=== PATIENT | male | born 1995 | race Two or more races ===

== ENCOUNTER 2019-04-23 18:03 | Emergency (ER) | payer SELFPAY ==
[~2019-04-23] VITALS: Ht 188 cm; Wt 90.7 kg
[2019-04-23 18:24] VITALS: BP 143/95
--- NOTE | 2019-04-23 18:34 | NUR ---
ED Nurse Note: PT WALKED IN DUE TO RIGHT INDEX FINGER LACERATION WITH PRESSURE DRESSING APPLIED. PT'S HAND WAS CUT WITH A GLASS WHILE WASHING DISHES. UNABLE TO REMEMBER LAST TETANUS SHOT. AAO X4, AMBULATORY.
--- NOTE | 2019-04-23 18:40 | NUR ---
ED Nurse Note: IRRIGATED WOUND WITH NS THEN PATTED DRY BY LUIS E/MANAGER PRESENTATION. NO BROKEN GLASS NOTED.
[2019-04-23] MEDS ORDERED: Tetanus/Diptheria/Pertussis IM ONE (18:45)
--- NOTE | 2019-04-23 19:04 | NUR ---
HAND-OFF: Report given to MAX LIRIANO.
[2019-04-23] MEDS ORDERED: Lidocaine 1% MPF 10mg/ml 5ml IM ONE (19:15)
[2019-04-23] MEDS ORDERED: Bacitracin Oint UD TOPIC ONE (19:45)
[2019-04-23] MEDS ORDERED: BACITRACIN-P28.35 GM TP (19:49)
[2019-04-23] MEDS ORDERED: CEPHALEXIN500 MG ORAL (19:49)
--- NOTE | 2019-04-23 19:49 | Emergency Room Report ---
History of Present Illness General Chief Complaint: Laceration Source: Patient Present Illness HPI 23-year-old male presents to the emergency department complaining of 8 out of 10 severity pain, bleeding and open wound to the right index finger. Patient reports he sustained laceration while cleaning a glass this evening. Patient states he is not up-to-date with tetanus vaccines he denies taking blood thinning medications. He denies loss of gross motor movements or sensation in the affected extremity. Patient denies suspicion of foreign body. Patient reports flexion of the right index finger exacerbates some of his pain. He states that he is right-hand dominant. No other aggravating or relieving factors. Allergies: Coded Allergies: No Known Allergies (Unverified , 04/23/19) Patient History Past Medical History: see triage record Past Surgical History: none Pertinent Family History: none Reviewed Nursing Documentation: PMH: Agreed; PSxH: Agreed Nursing Documentation-PMH Past Medical History: No Stated History Review of Systems All Other Systems: negative except mentioned in HPI Physical Exam Vital Signs Date Time Temp Pulse Resp B/P (MAP) Pulse Ox O2 Delivery O2 Flow Rate FiO2 04/23/19 18:24 98.8 70 20 143/95 97 Room Air Sp02 EP Interpretation: reviewed, normal General Appearance: no apparent distress, alert, GCS 15, non-toxic Head: normocephalic, atraumatic Eyes: bilateral eye normal inspection, bilateral eye PERRL ENT: hearing grossly normal, normal voice Neck: full range of motion Respiratory: lungs clear, normal breath sounds, speaking full sentences Cardiovascular #1: regular rate, rhythm, normal capillary refill Musculoskeletal: normal range of motion - against resistance. , gait/station normal, non-tender Neurologic: alert, motor strength/tone normal, oriented x3, sensory intact, responsive, speech normal, grossly normal Psychiatric: judgement/insight normal Skin: laceration - 2.5 cm jagged laceration that is superficial in some parts on the dorsum of the right index finger. not bleeding at this time. not gaping. Procedures Laceration/Wound Repair Laceration/Wound Repair : Consent: Verbal Wound Location: upper extremity - right index finger Wound's Depth, Shape: irregular Wound Length (cm): 2 Wound Explored: clean Irrigated w/ Saline (ccs): 500 Betadine Prep?: No Anesthesia: 1% Lidocaine Volume Anesthetic (ccs): 4 Wound Repaired With: sutures Suture Size/Type: 4:0 Number of Sutures: 2 Layer Closure?: No Sterile Dressing Applied?: Yes Splint Applied?: Yes - finger splint Type of Splint Applied: right index finger splint Sling Applied?: No Patient Tolerated: Well Complications: None Medical Decision Making PA Attestation Dr. Guzman is my supervising Physician whom patient management has been discussed with. Diagnostic Impression: Primary Impression: Laceration ER Course 23-year-old male presents to the emergency department complaining of 8 out of 10 severity pain, bleeding and open wound to the right index finger. Patient reports he sustained laceration while cleaning a glass this evening. Patient states he is not up-to-date with tetanus vaccines he denies taking blood thinning medications. He denies loss of gross motor movements or sensation in the affected extremity. Patient denies suspicion of foreign body. Patient reports flexion of the right index finger exacerbates some of his pain. He states that he is right-hand dominant. No other aggravating or relieving factors. Ddx considered but are not limited to laceration, tendon injury, cellulitis, amputation Vital signs: are WNL, pt. is afebrile H&PE are most consistent with: Right index finger laceration approx 2.5 cm in length ORDERS: none required at this time, the diagnosis is clinical ED INTERVENTIONS: -Tetanus vaccine was administered as pt. vaccination status was unknown. - The wound was copiously irrigated with normal saline, and explored for foreign body for which no FB was found. - pt. is anesthetized with 1%lidocaine plain. - The wound was approximated and closed using 2 interrupted 4.0 Ethilon sutures. -Bacitracin and sterile dressing is applied. -Right index finger splint applied by anesthesiology tech. Pt. remains neurovascularly intact. Discussed with patient: That we make every effort to approximate the laceration as best as we can so that scarring will be as cosmetically pleasing as possible with our limited cosmetic skill set in the Emergency dept. Regardless of our best efforts there will be scarring after laceration repair. The extent of scarring is unknown at this time. DISCHARGE: At this time pt. is stable for d/c to home. Will provide printed patient care instructions, and any necessary prescriptions. Care plan and follow up instructions have been discussed with the patient prior to discharge. Last Vital Signs Date Time Temp Pulse Resp B/P (MAP) Pulse Ox O2 Delivery O2 Flow Rate FiO2 04/23/19 18:24 98.8 70 20 143/95 (111) 97 Room Air Disposition: HOME, SELF-CARE Condition: Stable Scripts Bacitracin/Polymyxin B Sulfate (BACITRACIN-POLYMYXIN OINTMENT) 28.35 Gm Oint...g. 1 APPLIC TP BID, #28.3 GM Prov: Aspen Wheatley 04/23/19 Cephalexin* (KEFLEX*) 500 Mg Capsule 500 MG ORAL EVERY 12 HOURS for 7 Days, #14 CAP 0 Refills Prov: Aspen Wheatley 04/23/19 Departure Forms: Return to Work Return to Work Date: Apr 25, 2019 Work Restrictions: None, No Heavy Lifting Other Restrictions: allow use of finger splint. No heavy lifting. Return to Full Activity: May 02, 2019 Patient Instructions: Laceration Care, Adult Additional Instructions: Take medications as directed. Follow up with a Primary Care Provider in 3-5 days, even if your symptoms have resolved. Return sooner to ED if new symptoms occur, or current symptoms become worse. - Please note that this Emergency Department Report was dictated using [employer] trainer technology software, occasionally this can lead to erroneous entry secondary to interpretation by the dictation equipment. Aspen Wheatley Apr 23, 2019 19:49
[2019-04-23 19:59] VITALS: BP 134/88
--- NOTE | 2019-04-23 19:59 | NUR ---
ER DISCHARGE NOTE: Patient is cleared to be discharged per ERMD, pt is aox4, on room air, with stable vital signs. pt was given dc and prescription instructions, pt was able to verbalize understanding, pt id bandremoved. pt is able to ambulate with steady gait. pt took all belongings. finger splinted and dressed
== END 2019-04-23 20:00 | disposition home or self-care (01) ==
LOC: EMR 18:50
DX: S61.210A Laceration without foreign body of right index finger without damage to nail, initial encounter (principal); Z23 Encounter for immunization; W25.XXXA Contact with sharp glass, initial encounter; Y92.9 Unspecified place or not applicable
CPT/HCPCS: 29130; 90471; 90715; 99283